=== PATIENT | male | born 1975 | race Caucasian/White ===

== ENCOUNTER 2019-06-15 02:01 | Emergency (ER) | payer SELFPAY ==
[~2019-06-15] VITALS: Ht 180.3 cm; Wt 83.9 kg
[2019-06-15] MEDS ORDERED: HYDROMORPHONE 1 MG/1 ML DISP.SYRIN IV ONE ×3 (02:30→10:15)
[2019-06-15] MEDS ORDERED: ONDANSETRON 4 MG/2 ML VIAL IV ONE ×2 (02:30→10:15)
[2019-06-15] MEDS ORDERED: PIPERACILLIN SODIUM/TAZOBACTAM 3.375 G in IV DEXTROSE 5% 50 ML IV ONE ×2 (02:30→10:15)
[2019-06-15] MEDS ORDERED: HYDROMORPHONE 1 MG/1 ML DISP.SYRIN ONE ×3 (02:48→10:06)
[2019-06-15] MEDS ORDERED: PIPERACILLIN/TAZOBACTAM/D5W 50 ML IV ONE ×2 (02:48→10:18)
[2019-06-15] MEDS ORDERED: ONDANSETRON 4 MG/2 ML VIAL ONE ×2 (02:48→10:06)
[2019-06-15 02:59] LABS: BASOPHILS # (AUTO) 0.1 K/uL (0.0-8.0); BASOPHILS % (AUTO) 0.9 % (0.0-2.0); EOSINOPHILS # (AUTO) 0.2 K/uL (0.0-0.7); EOSINOPHILS % (AUTO) 1.5 % (0.0-7.0); HEMATOCRIT 40.9 % (36.7-47.1); HEMOGLOBIN 14.1 g/dL (12.5-16.3); LYMPHOCYTES # (AUTO) 2.4 K/uL (20.0-40.0); LYMPHOCYTES % (AUTO) 16.3 % (20.5-51.5); MEAN CORPUSCULAR HEMOGLOBIN 32.9 uug (23.8-33.4); MEAN CORPUSCULAR HGB CONC 35 g/dL (32.5-36.3); MEAN CORPUSCULAR VOLUME 95.1 fL (73.0-96.2); MONOCYTES # (AUTO) 1.8 K/uL (2.0-10.0); MONOCYTES % (AUTO) 12.2 % (0.0-11.0); NEUTROPHILS # (AUTO) 10.1 K/uL (1.8-8.9); NEUTROPHILS % (AUTO) 69.1 % (38.5-71.5); PLATELET COUNT (AUTO) 322 K/uL (152-348); WHITE BLOOD COUNT (AUTO) 14.6 K/uL (3.6-10.2)
--- NOTE | 2019-06-15 03:00 | NUR ---
Called [facility]. [facility] supervisor inspection and testing unable to take information at this time. States she will call back in 30mins.
[2019-06-15 03:07] LABS: BILIRUBIN,DIRECT 0.1 mg/dL (0.0-0.2); BILIRUBIN,TOTAL 0.4 mg/dL (0.2-1.0); POTASSIUM 3.8 mmol/L (3.5-5.1); TOTAL PROTEIN, SERUM 7.8 g/dL (6.4-8.2)
--- NOTE | 2019-06-15 03:09 | NUR ---
SERENA REESE CALLED BY RN (LALO JUSTIN) MIGUEL ANGEL WILL CALL BACK TO CONFIRM POSSIBLE REFERRAL AND ADMISSION
--- NOTE | 2019-06-15 03:20 | NUR ---
Called [facility] Transfer Center spoke to Chelsey, per Chelsey [facility] is unable to accept patient at this time due to no beds available.
--- NOTE | 2019-06-15 03:36 | NUR ---
Called [facility] transfer center. No beds available at this time.
--- NOTE | 2019-06-15 03:44 | NUR ---
Called [facility] Transfer Center. Unable to accept patient.
--- NOTE | 2019-06-15 03:45 | NUR ---
[facility] TRANSFER STATES ENT TRANSFER (HIGHER LEVEL OF CARE) NOT AVAILABLE
--- NOTE | 2019-06-15 03:51 | NUR ---
[facility] TRANSFER CENTER STATES THEY WILL CALL BACK ONCE CLINICAL STAFF ANESTHESIOLOGIST IS AVAILABLE
--- NOTE | 2019-06-15 03:52 | NUR ---
[facility] FOR ADULT HIGHER LEVEL OF CARE TRANSFERS
--- NOTE | 2019-06-15 03:57 | NUR ---
[facility] ([facility]) STATES THEY ARE AT [facility] AT THIS TIME. WAS INSTRUCTED TO SEND(FAX:[phone]) FACESHEET AND CALL BACK INFORMATION ALSO STATES LOW LIKELIHOOD OF TRANSFER AVAILABILITY TONIGHT BUT WILL TRY IN THE MORNING
--- NOTE | 2019-06-15 04:05 | NUR ---
Faxed to Nursing Applications Systems Analyst from [facility] the facesheet and clinicals.
--- NOTE | 2019-06-15 05:05 | NUR ---
RE-FAXED FACESHEET AND CLINICALS TO SERENA MICHELLE STATES THAT THE PAPERS WERE LOST DURING A MEETING , AND REQUESTS TO HAVE THE PAPERWORK RE-SENT PT NAD. SUPPORTIVE OXYGEN VIA NC AT 2LPM L AC G22 INTACT AND INFUSING WELL MONITORED ACCORDINGLY SIDERAILSX2 UP BED AT LOWEST POSITION PT ABLE TO AMBULATE TOWARDS RESTROOM
--- NOTE | 2019-06-15 06:51 | NUR ---
HAND OFF AND SBAR GIVEN TO INCOMING DAY SHIFT RN
--- NOTE | 2019-06-15 08:07 | NUR ---
[facility] TRANSFER CENTER WAS ACALLED. SPOKE TO HARMEET. SHE STATED THEY ARE AT [facility] AT THIS TIME. NO AVAILABLE BEDS.
--- NOTE | 2019-06-15 08:13 | NUR ---
[facility] TRANSFER CENTER WAS CALLED. TALKED TO NADYA. PT's CLINICAL INFORMATION AND FACE SHEET WERE FAXED [phone].
--- NOTE | 2019-06-15 08:21 | NUR ---
PT IS RESTING IN BED COMFORTABLY. NO S/S OF ACUTE DISTRESS AT THIS TIME.
--- NOTE | 2019-06-15 08:47 | NUR ---
[facility] WAS CALLED TO REQUEST PT's TRANSFER.SPOKE TO [facility]. PT's CLINICAL INFORMATION AND FACE SHEET WERE FAXED .
--- NOTE | 2019-06-15 08:54 | NUR ---
[facility] INSULATION INSTALLER NADYA CALLED BACK, NO BEDS AVAILABLE FOR PT's TRANSFER AT THIS TIME.
--- NOTE | 2019-06-15 09:29 | NUR ---
[facility] REPRESENTATIVE OLEA CALLED BACK TO [facility] ER. NO BEDS AVILABLE FOR TRANSFER AT THIS TIME.
--- NOTE | 2019-06-15 09:33 | NUR ---
DR MAYA CONTRERAS, DR TOMI BRYANT, DR PATRICIO MAYEN, DR KAREN TRAMMELL WERE CALLED ACOORDING TO DR BUSTILLOS REQUEST FOR CNSULTATION AND TO PERFORM PROCEDURE ON THE PT.
--- NOTE | 2019-06-15 10:07 | NUR ---
NO RESPONSE FROM ENT DOCTORS CALLED BEFORE. DR BUSTILLOS WAS NOTIFIED.
--- NOTE | 2019-06-15 11:44 | NUR ---
PT's MOTHER VISITED THE PT. PT DECIDED TO LEAVE [facility] ER AMA. DR BUSTILLOS EXPLAINED ALL RISKS OF LEAVING [facility] ER AMA. PT AND HIS MOTHER VERBALISED FULL UNDERSTANDING OF ER MD EXPLANATIONS, PT SIGNED AMA FORM AND [facility] MOTHER BY CAR. NO S/S OF ACUTE DISTRESS WAS NOTED AT THE TIME OF DISCHARGE. GAIT IS STABLE. NO SOB . NO N/V. PT DENIES PAIN.
[2019-06-15 11:54] VITALS: BP 142/79
== END 2019-06-15 12:01 | disposition left against medical advice (07) ==
LOC: ER 02:05
DX: J36 Peritonsillar abscess (principal); F15.10 Other stimulant abuse, uncomplicated
CPT/HCPCS: 36415; 80048; 80076; 85025; 85730; 87040 ×2; 93005; 96365; 96366; 96375; 96376; 99284; J1170 ×3; J2405 ×2; J2543 ×2; A4663

== ENCOUNTER 2019-06-16 14:51 | Emergency (ER) | payer SELFPAY ==
[~2019-06-16] VITALS: Ht 180.3 cm; Wt 86.2 kg
--- NOTE | 2019-06-16 16:13 | NUR ---
Patient discharged to home in stable conditon. Written and verbal after care instructions given. Patient verbalizes understanding of instructions.
[2019-06-16 16:14] VITALS: BP 107/86
== END 2019-06-16 16:14 | disposition home or self-care (01) ==
LOC: ER 14:51
DX: J36 Peritonsillar abscess (principal); F15.10 Other stimulant abuse, uncomplicated
CPT/HCPCS: A4663

== ENCOUNTER 2019-08-01 18:23 | Emergency (ER) | payer OTHER ==
[~2019-08-01] VITALS: Ht 180.3 cm; Wt 86.2 kg
== END 2019-08-01 19:40 | disposition left against medical advice (07) ==
LOC: ER 18:32
DX: Z53.21 Procedure and treatment not carried out due to patient leaving prior to being seen by health care provider (principal)

== ENCOUNTER 2022-04-14 15:24 | Emergency (ER) | payer SELFPAY ==
[~2022-04-14] VITALS: Ht 180.3 cm; Wt 86.2 kg
--- NOTE | 2022-04-14 15:55 | NUR ---
Pt was triaged and placed back in the waiting room. No ER beds available.
[2022-04-14] MEDS ORDERED: DEXAMETHASONE SOD PHOSPHATE 4 MG INJ IM ONE (16:00)
[2022-04-14] MEDS ORDERED: KETOROLAC TROMETHAMINE 15 MG INJ IM ONE (16:00)
[2022-04-14] MEDS ORDERED: IBUP-1955 PO (16:03)
[2022-04-14] MEDS ORDERED: AMOX-430 PO (16:03)
[2022-04-14] MEDS ORDERED: DEXAMETHASONE SOD PHOSPHATE 10 MG INJ ONE (16:36)
[2022-04-14] MEDS ORDERED: KETOROLAC TROMETHAMINE 15 MG INJ ONE (16:36)
--- NOTE | 2022-04-14 16:40 | NUR ---
Attempted to bring pt back to ER hallway for treatment/meds, pt not found in ER waiting room or outside ER.
--- NOTE | 2022-04-14 16:53 | NUR ---
Pt was not found in ER waiting room or outside ER.
--- NOTE | 2022-04-14 17:50 | NUR ---
Pt came back to ER, stated he was waiting in his car. Pt brought back to triage area for treatment and discharge.
--- NOTE | 2022-04-14 17:59 | NUR ---
Patient discharged to home in stable condition. Written and verbal after care instructions given. Patient verbalizes understanding of instructions. Stressed follow up or return to ER for worsening s/s.
== END 2022-04-14 16:54 | disposition left against medical advice (07) ==
LOC: ER 15:24
DX: J02.9 Acute pharyngitis, unspecified (principal); R03.0 Elevated blood-pressure reading, without diagnosis of hypertension
CPT/HCPCS: 86403; A4663; J1100; J1885